=== PATIENT | female | born 2000 | race Caucasian/White ===

== ENCOUNTER 2020-09-25 05:11 | Observation (INO) | payer BC ==
[~2020-09-25] VITALS: Ht 170.2 cm; Wt 56.8 kg
[2020-09-25] VITALS (7 sets, daily range): BP systolic 93–114; BP diastolic 45–69; PULSE 61–75; TEMP 97.8–98.2
[~2020-09-25 05:11] MED LIST: NO HOME MEDICATIONS
[2020-09-25 05:37] LABS: BASO % 0.2 % (0.0-2.0); EOS % 0.1 % (0-4.0); GRAN # 16.6 (1.4-6.5); GRAN % 85.3 % (42.2-75.2); HEMATOCRIT 38.9 % (37.0-47.0); HEMOGLOBIN 13.3 g/dl (12.5-16.0); LYMPH # 1.7 (1.2-3.4); LYMPH % 8.8 % (20.0-51.0); MEAN CELL VOLUME 89 fl (80.0-100.0); MEAN CORPUSCULAR HEMOGLOBIN 30 pg (27.0-31.0); MEAN CORPUSCULAR HGB CONC 34 g/dl (33.0-37.0); MEAN PLATELET VOLUME 10.4 fl (7.4-10.4); PLATELET COUNT 291 K/mm3 (130-400); RED BLOOD COUNT 4.37 M/mm3 (4.10-5.30); REDCELL DISTRIBUTION WIDTH-CV 12.8 % (11.5-14.5)
[2020-09-25 05:50] LABS: ALBUMIN 4.9 gm/dL (3.5-5.0); BILIRUBIN,TOTAL 0.7 mg/dL (0.0-1.0); C-REACTIVE PROTEIN 0.9 mg/dL (0.0-0.9); CALCIUM 9.7 mg/dL (8.4-10.2); CREATININE, serum 0.66 (0.52-1.25); POTASSIUM 3.2 mmol/L (3.4-5.0); TOTAL PROTEIN 8.1 gm/dL (6.4-8.2)
[2020-09-25] MEDS ORDERED: LEXAPRO20 MG PO (08:39)
[2020-09-25] MEDS ORDERED: ATIVAN 0.50.5 MG/TAB PO (08:40)
--- NOTE | 2020-09-25 09:42 | NUR ---
Dr Beaulieu notified of admission to unit.
--- NOTE | 2020-09-25 12:20 | NUR ---
Patient alert and oriented, answers questions appropriately. Abdomen soft, non distended, tender to palpation. +Flatus. NPO since this 0700 this a.m. Parent at bedside. Visitation policy reviewed with patient and family.
--- NOTE | 2020-09-25 12:37 | NUR ---
Dr Beaulieu here to see patient.
--- NOTE | 2020-09-25 14:18 | NUR ---
ROBIN met the patient, her mother (Heather, ph#[phone]), and father to discuss discharge plan. The patient lives in [place] with roommates. 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 She reports independence with ADLs and does not have any DME. The patient's PCP is Dr. Cecilia Guerrero and she receives her medications from [facility]. She reports no difficulties obtaining her meds. The patient does not have a DPOA-HC. The patient plans to return home with her roommates upon disharge. The patient would like for ROBIN to notify [facility] of her being admitted. ROBIN notified Nereida at [employer]'s [employer] of the patient's hospitalization. No additional needs at this time. *Discharge plan: home with roommates*
--- NOTE | 2020-09-25 16:56 | NUR ---
Patient to surgery with surgical staff at 1615.
[2020-09-26 00:14] VITALS: BP 102/49; PULSE 63; TEMP 98.5
[2020-09-26 04:57] VITALS: BP 94/45; PULSE 87; TEMP 98.1
--- NOTE | 2020-09-26 06:01 | NUR ---
Awake, alert, oriented x 4, ambulating in hallway, tolerating general diet, denies need for pain medications, voiding w/o difficulty, reports passing gas, Updated on plan of care, uses call medrano appropriately.
[2020-09-26 07:20] VITALS: BP 94/43; PULSE 60; TEMP 98.4
--- NOTE | 2020-09-26 08:14 | NUR ---
Patient awake & alert. Tolerated breakfast. Denies nausea. Lap site bandaids intact. Int. Denies needs at this time. Will monitor.
[2020-09-26] MEDS ORDERED: NORCO 325 MG-51 TAB PO (09:27)
--- NOTE | 2020-09-26 10:09 | NUR ---
rounded. Discharge orders obtained. We reviewed all discharge teaching. Int dc. She denies questions or concerns. Patient ambulated out with all belongings, her mother taking her home.
== END 2020-09-26 10:11 | disposition home or self-care (01) ==
LOC: COL.ER 05:11 → SURG 07:49
PROVIDERS: Emergency Medicine; ADMIT Surgery
DX: K35.80 Unspecified acute appendicitis (principal); Z20.822 Contact with and (suspected) exposure to COVID-19; N83.202 Unspecified ovarian cyst, left side; Z79.899 Other long term (current) drug therapy
CPT/HCPCS: G0378; J1100; J1170; J1885; J1956; J2250; J2405; J2704; J3010; J7030; J7120; Q9967

== ENCOUNTER 2020-10-23 20:14 | Emergency (ER) | payer BC ==
[~2020-10-23] VITALS: Ht 170.2 cm; Wt 56.8 kg
[~2020-10-23 20:14] MED LIST changes: +ATIVAN 0.50.5 MG/TAB PO; +LEXAPRO20 MG PO; +NORCO 325 MG-51 TAB PO
[2020-10-23 20:49] VITALS: TEMP 98.2
[2020-10-23 21:27] LABS: COLLECTION METHOD CLEAN CATCH
[2020-10-23 21:32] LABS: BASO % 0.3 % (0.0-2.0); EOS # 0.1 (0.0-0.7); EOS % 0.5 % (0-4.0); GRAN # 11.8 (1.4-6.5); GRAN % 74.3 % (42.2-75.2); HEMATOCRIT 40.2 % (37.0-47.0); HEMOGLOBIN 13.1 g/dl (12.5-16.0); LYMPH % 18.9 % (20.0-51.0); MEAN CELL VOLUME 91 fl (80.0-100.0); MEAN CORPUSCULAR HEMOGLOBIN 30 pg (27.0-31.0); MEAN CORPUSCULAR HGB CONC 33 g/dl (33.0-37.0); MEAN PLATELET VOLUME 10.4 fl (7.4-10.4); MONO # 0.9 (0.1-0.6); MONO % 5.6 % (1.7-9.3); PLATELET COUNT 275 K/mm3 (130-400); RED BLOOD COUNT 4.42 M/mm3 (4.10-5.30); REDCELL DISTRIBUTION WIDTH-CV 12.5 % (11.5-14.5)
[2020-10-23 21:38] LABS: MUCOUS Present /lpf; PH 6 (5-8); SQUAMOUS EPITHELIAL 0-2 /hpf; URINE APPEARANCE Cloudy; URINE BACTERIA Rare /hpf; URINE BILIRUBIN Negative (NEGATIVE); URINE BLOOD 2+ (NEGATIVE); URINE COLOR Amber; URINE GLUCOSE Negative (NEGATIVE); URINE KETONE Negative (NEGATIVE); URINE LEUKOCYTE ESTERASE 2+ (NEGATIVE); URINE NITRATE Positive (NEGATIVE); URINE PROTEIN(semi-quant) 2+ (NEGATIVE); URINE RBC >50 /hpf
[2020-10-23 21:42] LABS: ALBUMIN 4.8 gm/dL (3.5-5.0); CALCIUM 9.9 mg/dL (8.4-10.2); CREATININE, serum 0.8 (0.52-1.25); POTASSIUM 3.5 mmol/L (3.4-5.0); TOTAL PROTEIN 8.6 gm/dL (6.4-8.2)
[2020-10-23 21:58] LABS: C-REACTIVE PROTEIN 3.5 mg/dL (0.0-0.9)
[2020-10-23] MEDS ORDERED: CEFTIN500 MG PO (23:22)
[2020-10-23 23:40] VITALS: BP 117/74; PULSE 70
== END 2020-10-23 23:44 | disposition home or self-care (01) ==
LOC: COL.ER 20:14
PROVIDERS: Emergency Medicine
DX: N12 Tubulo-interstitial nephritis, not specified as acute or chronic (principal); N28.89 Other specified disorders of kidney and ureter
CPT/HCPCS: J0696; J2270; J2405; J7030; Q9967

== ENCOUNTER 2021-04-16 12:22 | Day surgery (SDC) | payer BC ==
[~2021-04-16] VITALS: Ht 170.2 cm; Wt 63.1 kg
[~2021-04-16 12:22] MED LIST changes: +CEFTIN500 MG PO
[2021-04-16 13:19] VITALS: BP 106/65; PULSE 72; TEMP 97.6
[2021-04-16] MEDS ORDERED: VOLNEA 0.15-0.1 EACH PO (13:29)
[2021-04-16] MEDS ORDERED: PAXIL 20MG20 MG PO (13:29)
[2021-04-16] MEDS ORDERED: KLONOPIN 1MG1 MG PO (13:29)
[2021-04-16 15:45] VITALS: BP 99/51; PULSE 81
--- NOTE | 2021-04-16 15:45 | NUR ---
Patient returns to room 1 per cart from PACU accompanied by Sandi RN and is awake and alert. IV fluids infusing. Siderails up x2 and call light in reach. Temp 98 and room air sats 98%. Mother in room. Patient allowed to rest. Has been sipping on water.
[2021-04-16 16:00] VITALS: BP 106/61; PULSE 76
--- NOTE | 2021-04-16 16:00 | NUR ---
Assisted up to the bathroom. Able to void and returns to room. Allowed to rest.
[2021-04-16 16:15] VITALS: BP 111/55; PULSE 64
--- NOTE | 2021-04-16 16:15 | NUR ---
Drinking Sprite and eating chocolate muffin.
[2021-04-16 16:26] VITALS: TEMP 98.2
[2021-04-16 16:30] VITALS: BP 107/58; PULSE 64
--- NOTE | 2021-04-16 16:30 | NUR ---
Resting with eyes closed and offers no complaints.
--- NOTE | 2021-04-16 16:40 | NUR ---
Again assisted up to the bathroom and voids. Returns to room. IV discontinued and site is free of redness. Patient dresses self.
--- NOTE | 2021-04-16 17:05 | NUR ---
Patient dismissed to home driven by mother. Patient taken per wheelchair and assisted into vehicle with dismissal instructions in hand.
== END 2021-04-16 17:05 | disposition home or self-care (01) ==
LOC: SDCO 12:22
DX: N39.0 Urinary tract infection, site not specified (principal); R93.41 Abnormal radiologic findings on diagnostic imaging of renal pelvis, ureter, or bladder; J30.9 Allergic rhinitis, unspecified; M54.59 Other low back pain; D64.9 Anemia, unspecified; F41.0 Panic disorder [episodic paroxysmal anxiety]; Z87.440 Personal history of urinary (tract) infections; Z79.899 Other long term (current) drug therapy
CPT/HCPCS: C1769; J0690; J1100; J2405; J2704; J3010; J7050; J7120; Q9967

== ENCOUNTER → 2021-06-23 | Outpatient (CLI) | payer BC ==
[~2021-06-23] MED LIST changes: +KLONOPIN 1MG1 MG PO; +PAXIL 20MG20 MG PO; +VOLNEA 0.15-0.1 EACH PO
== END ==
LOC: COL.RAD 10:30
DX: R07.81 Pleurodynia (principal); R10.9 Unspecified abdominal pain

== ENCOUNTER → 2021-10-02 | Outpatient (CLI) | payer BC | LOC: COL.RAD 10:05 | DX: R10.11 Right upper quadrant pain (principal); R11.0 Nausea ==

== ENCOUNTER → 2021-10-05 | Outpatient (CLI) | payer BC | LOC: COL.RAD 06:04 | DX: K82.8 Other specified diseases of gallbladder (principal) | CPT/HCPCS: A9537; J2270 ==